=== PATIENT | male | born 1955 | race Caucasian/White ===

== ENCOUNTER 2023-08-02 08:02 | Day surgery (SDC) | payer MEDICARE ==
[2023-08-02] MEDS ORDERED: Lidocaine 2% 5 ML SDV IV ONE (08:03)
[2023-08-02] MEDS ORDERED: Propofol 200 MG/20 ML SDV IV ONE (08:03)
[2023-08-02] MEDS ORDERED: Lidocaine 2% 5 ML SDV ONE (08:03)
[2023-08-02] MEDS ORDERED: Sodium Chloride 0.9% 10 ML Syringe FLUSH PRN (08:15)
[2023-08-02] MEDS ORDERED: Lactated Ringers 1,000 ML IV SCH (08:15)
== END 2023-08-02 11:47 | disposition home or self-care (01) ==
LOC: FB.SDS 08:02
PROVIDERS: ATTEND Surgery
DX: K29.80 Duodenitis without bleeding (principal); R63.4 Abnormal weight loss; E11.9 Type 2 diabetes mellitus without complications; E78.00 Pure hypercholesterolemia, unspecified; Z87.19 Personal history of other diseases of the digestive system; Z79.4 Long term (current) use of insulin; Z79.899 Other long term (current) drug therapy
CPT/HCPCS: 00731; 43239; 82947; 88305; J2704; J7120